=== PATIENT | female | born 1970 | race Two or more races ===

== ENCOUNTER 2016-10-12 12:27 | Emergency (ER) | payer OTHER ==
[2016-10-12] MEDS ORDERED: CYCLOBENZAPRINE HCL 10 MG TABLET ONE (14:59)
--- NOTE | 2016-10-12 16:30 | RAD ---
THORACIC DORSAL SPINE 3 VIEW COMPARISON: None. HISTORY: Acute upper back pain at the T5 level. Injured at work while lifting a heavy object. FINDINGS: Views: Thoracic spine AP, lateral, swimmer's lateral. Vertebral alignment: Normal. Vertebral bodies: No acute finding. 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 Disc heights: Normal. Pedicles and posterior arches: Normal Paraspinal soft tissues: Normal. Posterior ribs: Normal. 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 No fracture.
== END 2016-10-12 16:56 | disposition home or self-care (01) ==
LOC: ED 12:27
DX: S29.012A Strain of muscle and tendon of back wall of thorax, initial encounter (principal); M54.2 Cervicalgia; Q67.5 Congenital deformity of spine; X50.0XXA Overexertion from strenuous movement or load, initial encounter; Y92.511 Restaurant or cafe as the place of occurrence of the external cause; Y99.0 Civilian activity done for income or pay

== ENCOUNTER 2016-10-24 18:08 | Emergency (ER) | payer OTHER ==
[2016-10-24] MEDS ORDERED: METOCLOPRAMIDE HCL 5 MG/ML 2ML VIAL ONE (18:47)
[2016-10-24] MEDS ORDERED: KETOROLAC TROMETHAMINE 30 MG/ML 1 ML VIAL ONE ×2 (18:48→20:18)
[2016-10-24] MEDS ORDERED: DIPHENHYDRAMINE HCL 50 MG/1 ML VIAL ONE (18:48)
[2016-10-24] MEDS ORDERED: ONDANSETRON 4 MG ODT TAB ONE (18:48)
[2016-10-24] MEDS ORDERED: LORAZEPAM 2 MG/ML 1ML SDV ONE (20:19)
== END 2016-10-24 21:57 | disposition home or self-care (01) ==
LOC: ED 18:08
DX: G43.909 Migraine, unspecified, not intractable, without status migrainosus (principal); I10 Essential (primary) hypertension; E66.9 Obesity, unspecified
CPT/HCPCS: 99283 ×2; 96372 ×4; J2060; J1200; J2765; J1885 ×2; A9270

== ENCOUNTER 2016-12-03 09:24 | Emergency (ER) | payer OTHER ==
[2016-12-03] MEDS ORDERED: LACTATED RINGERS 1,000 ML ONE (09:49)
[2016-12-03] MEDS ORDERED: KETOROLAC TROMETHAMINE 30 MG/ML 1 ML VIAL ONE (09:49)
[2016-12-03] MEDS ORDERED: LORAZEPAM 2 MG/ML 1ML SDV ONE (09:50)
[2016-12-03 10:36] LABS: URINE APPEARANCE CLEAR; URINE BILIRUBIN NEGATIVE (NEGATIVE); URINE BLOOD NEGATIVE (NEGATIVE); URINE COLOR YELLOW; URINE GLUCOSE (UA) NEGATIVE (NEGATIVE); URINE LEUKOCYTE ESTERASE NEGATIVE (NEGATIVE); URINE NITRITE NEGATIVE (NEGATIVE); URINE PROTEIN NEGATIVE (NEGATIVE); URINE UROBILINOGEN NORMAL (0-1 mg/dl)
== END 2016-12-03 11:48 | disposition home or self-care (01) ==
LOC: ED 09:24
DX: R51 Headache (principal); I10 Essential (primary) hypertension; Z86.32 Personal history of gestational diabetes
CPT/HCPCS: 81003; 96375; 99283 ×2; 96374; 82962; J2060; J1885; J7120